=== PATIENT | male | born 1970 | race Caucasian/White ===

== ENCOUNTER 2022-03-16 12:55 | Inpatient (IN) | payer OTHER ==
[~2022-03-16] VITALS: Ht 177.8 cm; Wt 90.3 kg
[2022-03-16 14:57] LABS: HEMOGLOBIN 10.9 gm/dl (14.0-17.5); RED BLOOD COUNT 3.81 M/UL (4.20-5.50); WHITE BLOOD COUNT 4.3 K/UL (4.5-11.0)
[2022-03-16 15:29] LABS: BUN/CREATININE RATIO 22 (0-10)
--- NOTE | 2022-03-17 01:37 | NUR ---
BLOOD CULTURE POSITIVE, GRAM POSTIVE RODS, MADE AWARE, NO NEW ORDERS NOTED
[2022-03-17 01:57] LABS: HEMOGLOBIN 11.5 gm/dl (14.0-17.5); WHITE BLOOD COUNT 4.1 K/UL (4.5-11.0)
[2022-03-17 02:21] LABS: BUN/CREATININE RATIO 22 (0-10)
--- NOTE | 2022-03-17 02:49 | NUR ---
PATIENT O2 SAT WAS 55 ON THE TELE MONTIOR, PATIENT WAS ASSESSED AND SHOWED MILD S/S OF DISTRESS. O2 WAS INCREASED TO 5 L NC WITH HUMIDIFIER.LEADS WERE ALL REPLACED AND NEW ELECTRODES ON PATIENT. READING WAS STILL LOW, PT DOES HAVW LOW EF (26-30%) MAY BE PERFUSION ISSUE. NOTIFIED NEW ORDERS PLACED AND STATED HE WILL COME TO FLOOR TO SEE PT.
[2022-03-18 07:46] LABS: BUN/CREATININE RATIO 20 (0-10)
[2022-03-18 07:58] LABS: HEMOGLOBIN 9.8 gm/dl (14.0-17.5)
[2022-03-18 07:59] LABS: RED BLOOD COUNT 3.48 M/UL (4.20-5.50); WHITE BLOOD COUNT 5.4 K/UL (4.5-11.0)
[2022-03-19 04:25] LABS: HEMOGLOBIN 10.3 gm/dl (14.0-17.5); RED BLOOD COUNT 3.64 M/UL (4.20-5.50)
[2022-03-19 04:44] LABS: BUN/CREATININE RATIO 23 (0-10)
[2022-03-20 05:31] LABS: HEMOGLOBIN 10.7 gm/dl (14.0-17.5); RED BLOOD COUNT 3.77 M/UL (4.20-5.50); WHITE BLOOD COUNT 5.4 K/UL (4.5-11.0)
[2022-03-20 05:53] LABS: BUN/CREATININE RATIO 24 (0-10)
[2022-03-21 04:42] LABS: HEMOGLOBIN 11.9 gm/dl (14.0-17.5); WHITE BLOOD COUNT 5.7 K/UL (4.5-11.0)
[2022-03-21 04:49] LABS: RED BLOOD COUNT 4.16 M/UL (4.20-5.50)
[2022-03-21 04:57] LABS: BUN/CREATININE RATIO 24 (0-10)
[2022-03-22 03:47] LABS: HEMOGLOBIN 11.1 gm/dl (14.0-17.5); RED BLOOD COUNT 3.93 M/UL (4.20-5.50); WHITE BLOOD COUNT 6.5 K/UL (4.5-11.0)
[2022-03-22 04:09] LABS: BUN/CREATININE RATIO 18 (0-10)
[2022-03-22] MEDS ORDERED: FUROSEMIDE40 MG PO ×2 (16:10→16:12)
[2022-03-22] MEDS ORDERED: LISINOPRIL5 MG PO ×2 (16:10→16:12)
[2022-03-22] MEDS ORDERED: ATORVASTATIN CA10 MG PO ×2 (16:10→16:12)
[2022-03-22] MEDS ORDERED: LEVOFLOXACIN500 MG PO ×2 (16:10→16:12)
[2022-03-22] MEDS ORDERED: ASPIRIN EC81 MG PO ×2 (16:10→16:12)
[2022-03-22] MEDS ORDERED: LOPRESSOR 25 MG25 MG PO ×2 (16:10→16:12)
[2022-03-23 06:52] LABS: HEMOGLOBIN 12.5 gm/dl (14.0-17.5)
[2022-03-23 06:53] LABS: RED BLOOD COUNT 4.35 M/UL (4.20-5.50); WHITE BLOOD COUNT 4.3 K/UL (4.5-11.0)
[2022-03-23 07:14] LABS: BUN/CREATININE RATIO 22 (0-10)
== END 2022-03-23 12:29 | disposition home health service (06) | DRG 291 ==
LOC: ER1 12:55 → CDU 18:19 → M/S 18:19
PROVIDERS: Emergency Medicine; Internal Medicine; Physician Assistant; ADMIT Internal Medicine
DX: I11.0 Hypertensive heart disease with heart failure (principal); I50.23 Acute on chronic systolic (congestive) heart failure; J96.01 Acute respiratory failure with hypoxia; D61.818 Other pancytopenia; I42.8 Other cardiomyopathies; Z66 Do not resuscitate; Z20.822 Contact with and (suspected) exposure to COVID-19; E78.5 Hyperlipidemia, unspecified; F17.210 Nicotine dependence, cigarettes, uncomplicated; F19.10 Other psychoactive substance abuse, uncomplicated; B19.20 Unspecified viral hepatitis C without hepatic coma; K74.60 Unspecified cirrhosis of liver; J44.9 Chronic obstructive pulmonary disease, unspecified; D69.6 Thrombocytopenia, unspecified; F15.10 Other stimulant abuse, uncomplicated; I08.1 Rheumatic disorders of both mitral and tricuspid valves; Z79.01 Long term (current) use of anticoagulants; Z79.82 Long term (current) use of aspirin; Z86.16 Personal history of COVID-19; Z83.6 Family history of other diseases of the respiratory system; Z91.14 Patient's other noncompliance with medication regimen
CPT/HCPCS: 36415; 36600; 71045; 71046; 71250; 72100; 80048; 80053; 80061; 80202; 80307; 81001; 82550; 82553; 82803; 83540; 83550; 83605; 83735; 83880; 84100; 84484; 85025; 85027; 85610; 86140; 87040; 87086; 93005; 94760; 96374; 97162; 99285; J0692; J1650; J1940; J3370; J3475; J7070; U0002